=== PATIENT | male | born 1970 | race Two or more races ===

== ENCOUNTER 2019-02-13 18:01 | Emergency (ER) | payer SELFPAY ==
[~2019-02-13] VITALS: Ht 167.6 cm; Wt 120.2 kg
[2019-02-13] MEDS ORDERED: oxyCODONE/APAP 10/325 1 TAB TABLET PO ONE (18:15)
--- NOTE | 2019-02-13 18:19 | PHYS DOC ---
Adult General Chief Complaint Chief Complaint: FINGER INJURY HPI HPI Patient is a 48 year old R handed male who presents with an isolated L hand injury while operating a car lift device. Patient was using a manual annika to lower a car when it suddenly released catching his left small finger between the annika and the automobile. this was an isolated injury. Bystanders were eable to lift vehicle to free the patients hand. On exam, the patient has a deep laceration through the fourth webspace with angulation deformity of fifth proximal fifth digit. Sensation is intact. No other or complaint. Injury occurred just [employer]. Tetanus is not up to date. [] Review of Systems Review of Systems ROS as per HPI All other systems were reviewed and found to be within normal limits, except as documented in this note. Current Medications Current Medications Current Medications Medications (Trade) Dose Ordered Sig/Ralph Start Time Stop Time Status Last Admin Dose Admin Cefazolin Sodium (Ancef Im) 1 gm 1X ONCE 02/13/19 19:45 02/13/19 19:46 DC 02/13/19 19:55 1 GM Diphtheria/ Tetanus/Acell Pertussis (Boostrix) 0.5 ml ONCE ONCE 02/13/19 18:30 02/13/19 18:31 DC 02/13/19 18:37 0.5 ML Lidocaine/ Epinephrine (LIDOCAINE 1%-EPI 1:100,000 Multi-Dose) 20 ml 1X ONCE 02/13/19 19:45 02/13/19 19:46 DC 02/13/19 20:26 20 ML Oxycodone/ Acetaminophen (Percocet 10/325) 1 tab 1X ONCE 02/13/19 18:15 02/13/19 18:19 DC 02/13/19 18:33 1 TAB Allergies Allergies Allergies Coded Allergies Type Severity Reaction Last Updated Verified No Known Drug Allergies 02/13/19 No Physical Exam Physical Exam Constitutional: Well developed, well nourished, moderate discomfort secondary to pain. [] HENT: Normocephalic, atraumatic, bilateral external ears normal, oropharynx moist, nose normal. [] Eyes: PERRLA, EOMI. [] Neck: Normal range of motion. [] Extremities: left hand, a deep laceration through the fourth webspace extending got distal palm with angulation deformity of fifth proximal fifth digit. Sensation is intact. [] Neurologic: Alert and oriented X 3, limited motor function L small finger, normal sensory function. [] Psychologic: Affect normal, judgement normal, mood normal. [] Current Patient Data Vital Signs Vital Signs Date Time Temp Pulse Resp B/P (MAP) Pulse Ox O2 Delivery O2 Flow Rate FiO2 02/13/19 20:00 66 16 119/66 (83) 94 Room Air 02/13/19 18:13 98.0 98.0 EKG EKG [] Radiology/Procedures Radiology/Procedures [Laceration repair procedure note" [Fracture of left fifth proximal phalanx with deep wound laceration involving fourth webspace extending proximally to distal palm. Laceration was irrigated, explored, no foreign body or debris were present. Wound was extensively cleaned under high-pressure tap water. 3 ml of lidocaine with epinephrine was injected into the wound intradermally. Following which, #8 3�0 simple interrupted Ethilon sutures were placed with good wound approximation. The wound was then re- irrigated, bandaged and placed in an ulnar gutter splint for protection. Explicit wound instructions were given. Both patient and spouse confirmed understanding and need for orthopedic hand follow-up..] Course & Med Decision Making Course & Med Decision Making Pertinent Labs and Imaging studies reviewed. (See chart for details) [Wound cleansed and closed. Antibiotics, and medication given. Tetanus updated. Case discussed with Dr. Browne vocational rehabilitation technician for hand surgery at [facility]. Recommendations are closure, antibiotics, splinting and close follow-up with him in the office this week. Patient phone number provided to hand surgeon. Typical wound care instructions given in the interim. Patient verbalizes understanding agreement discharge instructions prior to departure] Dragon Disclaimer Dragon Disclaimer This electronic medical record was generated, in whole or in part, using a voice recognition dictation system. Departure Departure Impression: Primary Impression: Open fracture of finger of left hand Disposition: 01 HOME, SELF-CARE Condition: GOOD Patient Instructions: Finger Fracture, Laceration Care, Adult, [id number] Additional Instructions: Please keep wound clean and dry and wear splint for comfort and protection. Take Pain medication antibiotics as directed. Follow up with Dr. Browne at [facility] later this week for reevaluation and scheduling of hand surgery. Please call Dr. Browne's office at and schedule follow-up appointment if not contacted by his office by tomorrow afternoon. Return to the ED if signs of infection. Scripts Cephalexin (CEPHALEXIN) 500 Mg Capsule 1 CAP PO TID, #30 CAP Prov: HERMILA JORDAN DO 02/13/19 Hydrocodone Bit/Acetaminophen (HYDROCODONE-APAP 5-325 ) 1 Tab Tablet 1 TAB PO PRN Q6HRS PRN for PAIN, #20 TAB 0 Refills Prov: HERMILA JORDAN DO 02/13/19 HERMILA JORDAN DO Feb 13, 2019 18:19
[2019-02-13] MEDS ORDERED: DIPHTH,PERTUSS(ACELL),TET TOX 0.5 ML DISP.SYRIN. VAX IM ONE (18:30)
--- NOTE | 2019-02-13 18:38 | RAD ---
Exam: Left hand 3 views INDICATION: Trauma TECHNIQUE: Frontal, lateral and oblique views of the right hand submitted Comparisons: None FINDINGS: Severely comminuted fractures of the proximal phalanx fifth digit which extends into the proximal and distal articular surface with moderate displacement. Soft tissue irregularity adjacent to the fracture site, likely related to laceration. No other fractures are seen. Joint spaces are otherwise unremarkable. IMPRESSION: 1. Comminuted multipart fracture of the fifth digit proximal phalanx extending to the articular surface with moderate displacement. 2. Soft tissue irregularity along the fracture site at the fourth webspace, correlate for laceration. Electronically signed by: Kasie Eckert MD (02/13/2019 6:35 PM) [id number]
[2019-02-13] MEDS ORDERED: ceFAZolin IM 1 GM VIAL IM ONE (19:45)
[2019-02-13] MEDS ORDERED: LIDOCAINE 1%/EPI 1:100,000 20 ML VIAL. INJ ONE (19:45)
[2019-02-13] MEDS ORDERED: HYDR-2761 PO (21:10)
[2019-02-13] MEDS ORDERED: CEPH500C PO (21:10)
[2019-02-13 21:29] VITALS: BP 127/70
== END 2019-02-13 21:32 | disposition home or self-care (01) ==
LOC: ER 18:01
DX: S62.617B Displaced fracture of proximal phalanx of left little finger, initial encounter for open fracture (principal); W23.0XXA Caught, crushed, jammed, or pinched between moving objects, initial encounter; Y93.89 Activity, other specified; Y92.89 Other specified places as the place of occurrence of the external cause; Y99.0 Civilian activity done for income or pay
CPT/HCPCS: 12001; 29125; 73130; 90471; 90715; 96372; 99284; J0690; J3490; 29130